=== PATIENT | male | born 1950 | race Caucasian/White ===

== ENCOUNTER 2022-06-20 11:20 | Emergency (ER) | payer MEDICARE ==
[~2022-06-20] VITALS: Ht 172.7 cm; Wt 72.6 kg
[2022-06-20 11:40] VITALS: BP 159/89
[2022-06-20] MEDS ORDERED: LIDOCAINE 5% (PATCH) 1 EA PATCH TP SCH (12:00)
--- NOTE | 2022-06-20 12:00 | NUR ---
PT SEEN BY FOR [facility]BOY[facility]
[2022-06-20] MEDS ORDERED: LIDO30AD10 TP (12:06)
[2022-06-20] MEDS ORDERED: GABA300C PO (12:06)
--- NOTE | 2022-06-20 12:14 | NUR ---
PT REFUSED LIDODERM PATCH. PT ACCOMPANIED BY .
--- NOTE | 2022-06-20 12:14 | NUR ---
Patient discharged to home in stable condition. Written and verbal after care instructions given. Patient verbalizes understanding of instruction.
== END 2022-06-20 12:16 | disposition home or self-care (01) ==
LOC: ER 11:20
DX: B02.9 Zoster without complications (principal); Z88.8 Allergy status to other drugs, medicaments and biological substances; Z79.899 Other long term (current) drug therapy